=== PATIENT | female | born 1950 ===

== ENCOUNTER 2021-04-20 09:29 | Inpatient (IN) | payer OTHER ==
[~2021-04-20] VITALS: Ht 177.8 cm; Wt 68.0 kg
[~2021-04-20 09:29] MED LIST: MACROBID 100 M100 M1 PO
[2021-04-20 11:27] LABS: HEMOGLOBIN 11.8 gm/dl (12.3-15.3); RED BLOOD COUNT 4.03 M/UL (4.00-5.10); WHITE BLOOD COUNT 8.7 K/UL (4.5-11.0)
[2021-04-20] MEDS ORDERED: LASIX40 MG PO (17:11)
[2021-04-20] MEDS ORDERED: MOTRIN SUS100 MG/5 M PO (17:11)
[2021-04-20] MEDS ORDERED: OXYBUTYNIN CHLOR5 MG PO (17:11)
[2021-04-20] MEDS ORDERED: ALBUTEROL2.5 MG/3 M NEB (17:12)
[2021-04-20] MEDS ORDERED: LISINOPRIL5 MG PO (17:13)
[2021-04-20] MEDS ORDERED: LEVOTHYROXINE50 MCG PO (17:13)
[2021-04-20] MEDS ORDERED: CARVEDILOL12.5 MG PO (17:14)
[2021-04-21 04:37] LABS: HEMOGLOBIN 10.8 gm/dl (12.3-15.3); RED BLOOD COUNT 3.75 M/UL (4.00-5.10)
[2021-04-21 04:39] LABS: WHITE BLOOD COUNT 6.2 K/UL (4.5-11.0)
[2021-04-21 05:03] LABS: BUN/CREATININE RATIO 10 (0-10)
[2021-04-22 05:32] LABS: HEMOGLOBIN 11.2 gm/dl (12.3-15.3); RED BLOOD COUNT 3.81 M/UL (4.00-5.10); WHITE BLOOD COUNT 5.9 K/UL (4.5-11.0)
[2021-04-22 05:47] LABS: BUN/CREATININE RATIO 10 (0-10)
[2021-04-23 07:35] LABS: BUN/CREATININE RATIO 12 (0-10)
[2021-04-24 06:27] LABS: BUN/CREATININE RATIO 9 (0-10)
[2021-04-24] MEDS ORDERED: LEVOFLOXACIN750 MG PO (17:11)
[2021-04-25] MEDS ORDERED: DIFLUCAN150 MG PO (09:07)
== END 2021-04-25 13:08 | disposition home or self-care (01) | DRG 689 ==
LOC: ER1 09:29 → CDU 15:02 → M/S 15:02
PROVIDERS: Internal Medicine; Physician Assistant; ADMIT Internal Medicine
PROC: 8E0ZXY6 Isolation (ICD-10-PCS; principal; 2021-04-23)
DX: N13.6 Pyonephrosis (principal); G93.41 Metabolic encephalopathy; U07.1 COVID-19; J96.01 Acute respiratory failure with hypoxia; J69.0 Pneumonitis due to inhalation of food and vomit; J12.82 Pneumonia due to coronavirus disease 2019; N30.00 Acute cystitis without hematuria; J44.1 Chronic obstructive pulmonary disease with (acute) exacerbation; N10 Acute pyelonephritis; B37.3 Candidiasis of vulva and vagina; E03.9 Hypothyroidism, unspecified; R47.02 Dysphasia; I72.8 Aneurysm of other specified arteries; B95.2 Enterococcus as the cause of diseases classified elsewhere; I11.0 Hypertensive heart disease with heart failure; C43.9 Malignant melanoma of skin, unspecified; D64.9 Anemia, unspecified; G89.29 Other chronic pain; Z96.642 Presence of left artificial hip joint; Z87.01 Personal history of pneumonia (recurrent); Z87.440 Personal history of urinary (tract) infections; Z87.891 Personal history of nicotine dependence
CPT/HCPCS: 36415; 80048; 80053; 80202; 81001; 83605; 85025; 85027; 87040; 87086; 92610; 94640; 94664; 94760; 96374; 97161; 97166; 99285; G0378; J0360; J1335; J1650; J2270; J2405; J3370; J7030; J7070; U0002